=== PATIENT | female | born 1940 | race Caucasian/White ===

== ENCOUNTER 2017-02-22 11:11 | Observation (INO) | payer BC ==
--- NOTE | ~2017-02-22 | HP ---
History And Physical [place] [id number] [facility] [place]. [address] NAME: ELIJAH VERGARA : 44 STATUS : ADM Flora PAT#: [id number] AGE: 77 ADM/REG DATE : 02/22/17 MR#: [id number] REPORT SERV DATE: 02/22/17 DICTATED BY: SHERWIN LOU DATE: 02/22/17 REPORT STATUS : Draft TRANSCRIBED BY: JERAMY DATE: 02/22/17 DATE OF ADMISSION: 02/22/2017 CHIEF COMPLAINT: Syncope. 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 She was scheduled to see a retina specialist, was sitting in the lobby, was sitting and went to get up and felt a little dizzy, told her to cancel her appointment. She then david to stand and took a couple of steps and she had a syncopal episode. She states she felt dizzy and lightheaded just prior and she was diaphoretic. She did not have any nausea or vomiting. She states yesterday she worked outside all day. She may not have drunk enough fluids. She has not had any chest pain recently. She has not had any shortness of breath. She denies any nausea, vomiting, or diarrhea prior too. She has not had any fevers at home. She has actually been doing quite well. She typically mows the grass quite regularly which she had done yesterday but she also spent some time working in the yard in excess of what she normally does. PAST MEDICAL HISTORY: 1. Diabetes mellitus. 2. Hypertension. 3. Hyperlipidemia. 4. Morbid obesity. 5. CAD with history of CABG and inferior wall AL as well which was treated with a patch. 6. Recently diagnosed ANIKET, awaiting sleep study. ALLERGIES: NO KNOWN DRUG ALLERGIES. SOCIAL HISTORY: She is . She does not use tobacco or alcohol. FAMILY HISTORY: Mom had CHF. HOME MEDICATIONS: Reviewed and attached. REVIEW OF SYSTEMS: Full 10-point review of systems obtained. Pertinent positives are mentioned in the HPI. PHYSICAL EXAMINATION: VITAL SIGNS: Current vital signs, blood pressure 138/62, then 105/84, respiratory rate 19, pulse is 55 to 65, sats are 98%, and temperature is 97.5. GENERAL: Well-developed white female. HEENT: Normocephalic, atraumatic. Throat is clear. NECK: Supple. HEART: Regular rate and rhythm. LUNGS: Grossly clear ABDOMEN: Soft. EXTREMITIES: Warm and dry. Skin is intact. Pulses are 2+ at the feet. NEUROLOGIC: Cranial nerves II through XII are intact. Speech is intact. She has History And Physical [address] [address] NAME: ELIJAH VERGARA : 44 STATUS : ADM Flora PAT#: [id number] AGE: 77 ADM/REG DATE : 02/22/17 MR#: [id number] REPORT SERV DATE: 02/22/17 DICTATED BY: SHERWIN LOU DATE: 02/22/17 REPORT STATUS : Draft TRANSCRIBED BY: JERAMY DATE: 02/22/17 symmetrical strength and tone in all four extremities. LAB AND X-RAY: EKG shows sinus zachary with some old flipped T-waves in her lateral leads that were present on a previous EKG. She also has some Q-waves in her inferior leads. CBC: H and H are 12 and 37, white count 5.5, and platelets are 196. Coags are normal. Chemistry panel: Sodium 140, potassium 4.9, chloride 104, CO2 of 28, BUN and creatinine 38 and 1.64. Glucose is 152. Troponin is 0.02. Mag is 2.4. TSH is 3.2. ASSESSMENT/PLAN: 1. Syncope, likely multifactorial. The patient reports having her Diovan doubled last week. In addition she worked outside all day yesterday, probably did not drink adequate fluids and she has evidence of a mild acute kidney injury. I would recommend placing her in the hospital, hydrating her overnight, checking orthostatics again in the morning. She did not have obvious evidence of orthostasis in the ER. I am going to hold her Diovan, Norvasc, and Coreg for now given that her heart rate is only in the high 50s and she has not had her Coreg yet. We will see how her blood pressure does over the next 24 hours; if she gets above 150, we will go and give her Norvasc. We will check two more sets of cardiac enzymes. Maintain on tele bed and check an echo and go from there. 2. Mild acute kidney injury, likely secondary to having her Diovan dose doubled as well as probably some intravascular volume depletion. We will hydrate overnight hold her Diovan and check some urine studies and go from there. 3. History of coronary artery disease with coronary artery bypass graft. No chest pain. First enzymes are negative. We will do two more sets for completeness. 4. History of obstructive sleep apnea. Plans for full sleep study as an outpatient. 5. Diabetes mellitus. We will add level 1 sliding scale and see how her A1c looks. 6. Deep venous thrombosis prophylaxis. Subcutaneous Lovenox. 7. History of hypertension. Holding medications given syncope. 8. Disposition pending above. KLJ/MODL Sherwin Lou M.D. / [id number] CC: Jeancarlos John Jr, MD John Carter Hemphill, MD
--- NOTE | ~2017-02-22 | DS ---
Discharge Summary [facility] [address] [place]. [address] NAME: ELIJAH VERGARA : 44 STATUS : DIS Flora PAT#: [id number] AGE: 77 ADM/REG DATE : 02/22/17 MR#: [id number] REPORT SERV DATE: 02/24/17 DICTATED BY: MAXIMILIAN TENORIO DATE: 02/23/17 REPORT STATUS : Draft TRANSCRIBED BY: MODL DATE: 02/23/17 ADMISSION DATE: 02/22/2017 DISCHARGE DATE: 02/23/2017 DISCHARGE DIAGNOSES: 1. Syncope. 2. Acute kidney injury, resolving, most recent creatinine 1.25. 3. Sinus bradycardia. 4. Diabetes type 2. 5. History of hypertension. 6. Hypothyroidism, most recent TSH 3.210, on current Synthroid therapy. DISCHARGE MEDICATIONS: As follows; amlodipine 5 mg daily, aspirin 81 mg daily, Synthroid 25 mcg daily, Diovan 160 mg daily, Crestor 20 mg at bedtime, Coreg 25 mg daily, vitamin B12 one tablet p.o. twice a day, vitamin D one tablet daily, Centrum, multivitamin tab daily, magnesium one tab daily. HISTORY OF PRESENT ILLNESS: This is a very pleasant 77-year-old white female, who presented with a syncopal episode. Please see the initial H and P of Dr. Radhika Hernandez. This patient is admitted to the Hospitalist Service for further evaluation and treatment. The patient was admitted for observation of this syncopal episode. She was found to be in some mild acute kidney injury with a creatinine of 1.64. She was given IV hydration. Lab work was followed including troponins, TSH, metabolic panels, and H and H. Her orthostatics were also checked, which were within normal limits. The patient did well and has not had any more episodes of syncope or dizziness. Her creatinine trended downward with hydration. She had an echocardiogram done that showed an ejection fraction of 40% with some mild mitral and tricuspid regurg, which was only a minor advancement from a prior echocardiogram from 2013 as this showed an ejection fraction of 40% to 45%. The patient was felt safe for discharge and instructed to follow up with her primary care, Dr. Quiroga in approximately two weeks to further discuss her blood pressure and have decreased her Diovan back to the 160 daily. The patient also apparently has an outpatient sleep study that I have instructed her to keep and to also keep all her regular followups with her milking worker, Dr. Sawyer. The patient is in agreement with this plan going forward. I have updated her and her family at bedside. BETINA/RUPERTL Maximilian Tenorio NP / [id number] CC: Caren Etienne
[2017-02-22 10:46] LABS: BASOPHILS 0.2 %; BASOPHILS ABSOLUTE 0.01 10/3/uL (0.0-0.16); EOSINOPHILS 1.1 %; EOSINOPHILS ABSOLUTE 0.06 10/3/uL (0.0-0.53); HEMOGLOBIN 12.4 g/dL (12.0-16.0); IMMATURE GRANULOCYTES 0.2 %; IMMATURE GRANULOCYTES ABSOLUTE 0.01 10/3/uL (0.0-0.11); LYMPHOCYTES 26.9 %; LYMPHOCYTES ABSOLUTE 1.48 10/3/uL (0.67-4.30); MEAN PLATELET VOLUME 11.5 fL (9.2-13.0); MONOCYTES 6.9 %; MONOCYTES ABSOLUTE 0.38 10/3/uL (0.21-1.20); NEUTROPHILS 64.7 %; NEUTROPHILS ABSOLUTE 3.57 10/3/uL (2.02-8.40); RBC DISTRIBUTION WIDTH 13.8 % (12.0-16.0); RED CELL COUNT 4.13 10/6/uL (4.0-5.6); WHITE BLOOD CELLS 5.5 10/3/uL (4.5-10.5)
[2017-02-22 10:47] LABS: ER CBC TAT 0 Hrs 03 Mins; HEMATOCRIT 37.1 % (36.0-48.0); MANUAL DIFF NO %; MEAN CORPUS HGB CONC 33.4 g/dL (32.0-36.0); MEAN CORPUSCULAR VOLUME 89.8 fL (80-100); PLATELET COUNT 196 10/3/uL (150-400)
[2017-02-22 10:55] LABS: PROTIME (NOT ORD) 13.5 SEC (12.0-14.5)
[2017-02-22 11:08] LABS: BUN (BLOOD UREA NITROGEN) 38 MG/DL (6-23); CALCIUM, SERUM 8.9 MG/DL (8.5-10.4); CHEST PAIN PROFILE TAT 0 Hrs 25 Mins; CHLORIDE, SERUM 104 MMOL/L (96-112); CO2 (CARBON DIOXIDE) 28 MMOL/L (24-34); CREATININE 1.64 MG/DL (0.55-1.02); GFR AFRICAN AMERICAN 35 ML/MIN (>=60); GFR NON AFRICAN AMERICAN 30 ML/MIN (>=60); GLUCOSE, SERUM 152 MG/DL (60-99); POTASSIUM, SERUM 4.9 MMOL/L (3.5-5.3); SODIUM, SERUM 140 MMOL/L (135-148); TROPONIN I <0.02 NG/ML (<0.05)
[~2017-02-22 11:11] MED LIST: ACTOPLUS M15 MG/500 PO; ASAB PO; COREG12 PO; DIOV160 PO; EXFORGE; L20 PO; LEVOTHROID25 MCG PO; LIPITOR20 PO; MAGOX4 PO; MULTI-VIT HP OR; NITROII20C TOP; NORV5 PO; PROTONIX PO; VITAMIN D31000 UNIT PO
[2017-02-22] MEDS ORDERED: DIOV160 PO (12:25)
[2017-02-22] MEDS ORDERED: NORV5 PO (12:25)
[2017-02-22] MEDS ORDERED: CRESTOR20 MG PO (12:25)
[2017-02-22] MEDS ORDERED: COREG25 PO (12:26)
[2017-02-22] MEDS ORDERED: VITAMIN B-12 PO (12:26)
[2017-02-22] MEDS ORDERED: LEVOTHROID25 MCG PO (12:26)
[2017-02-22] MEDS ORDERED: CENTRUM PO (12:27)
[2017-02-22] MEDS ORDERED: MAGNESIUM PO (12:27)
[2017-02-22] MEDS ORDERED: VITAMIN D PO (12:27)
[2017-02-22] MEDS ORDERED: ASAB PO (12:27)
[2017-02-22 14:12] LABS: PHOSPHORUS, SERUM 4.3 MG/DL (2.5-4.5)
[2017-02-22 17:41] LABS: ASCORBIC ACID (UR NOT ORDER) NEG (NEG); BILIRUBIN, URINE NEGATIVE (NEG); KETONE, URINE NEGATIVE (NEG); LEUKOCYTE ESTERASE(NOT OR MOD (NEG); WBC (NOT ORDERED) (RFLEX) 3 (0-5)
[2017-02-23 04:18] LABS: BASOPHILS 0.2 %; BASOPHILS ABSOLUTE 0.01 10/3/uL (0.0-0.16); EOSINOPHILS 1.8 %; EOSINOPHILS ABSOLUTE 0.11 10/3/uL (0.0-0.53); HEMATOCRIT 33.6 % (36.0-48.0); IMMATURE GRANULOCYTES 0.2 %; IMMATURE GRANULOCYTES ABSOLUTE 0.01 10/3/uL (0.0-0.11); LYMPHOCYTES ABSOLUTE 2.18 10/3/uL (0.67-4.30); MEAN CORPUS HGB CONC 32.7 g/dL (32.0-36.0); MEAN CORPUSCULAR HEMOGLOB 29.3 pg (26.0-34.0); MEAN CORPUSCULAR VOLUME 89.6 fL (80-100); MEAN PLATELET VOLUME 12.1 fL (9.2-13.0); MONOCYTES 8.2 %; MONOCYTES ABSOLUTE 0.51 10/3/uL (0.21-1.20); NEUTROPHILS 54.6 %; NEUTROPHILS ABSOLUTE 3.41 10/3/uL (2.02-8.40); PLATELET COUNT 216 10/3/uL (150-400); RBC DISTRIBUTION WIDTH 13.8 % (12.0-16.0); RED CELL COUNT 3.75 10/6/uL (4.0-5.6); WHITE BLOOD CELLS 6.2 10/3/uL (4.5-10.5)
[2017-02-23 04:20] LABS: MANUAL DIFF NO %
[2017-02-23 04:38] LABS: CALCIUM, SERUM 8.4 MG/DL (8.5-10.4); CHLORIDE, SERUM 111 MMOL/L (96-112); CO2 (CARBON DIOXIDE) 25 MMOL/L (24-34); CREATININE 1.25 MG/DL (0.55-1.02); GFR AFRICAN AMERICAN 49 ML/MIN (>=60); GFR NON AFRICAN AMERICAN 42 ML/MIN (>=60); SODIUM, SERUM 143 MMOL/L (135-148); TROPONIN I <0.02 NG/ML (<0.05)
[2017-02-23 04:57] LABS: BUN (BLOOD UREA NITROGEN) 32 MG/DL (6-23); GLUCOSE, SERUM 93 MG/DL (60-99)
== END 2017-02-23 14:38 | disposition home or self-care (01) ==
LOC: ER 11:11 → CDU1 12:16
PROVIDERS: Emergency Medicine; Internal Medicine
DX: R55 Syncope and collapse (principal); N17.9 Acute kidney failure, unspecified; E11.9 Type 2 diabetes mellitus without complications; I10 Essential (primary) hypertension; E78.5 Hyperlipidemia, unspecified; D64.9 Anemia, unspecified; E66.01 Morbid (severe) obesity due to excess calories; K21.9 Gastro-esophageal reflux disease without esophagitis; E78.00 Pure hypercholesterolemia, unspecified; E03.9 Hypothyroidism, unspecified; I25.10 Atherosclerotic heart disease of native coronary artery without angina pectoris; I25.2 Old myocardial infarction; G47.33 Obstructive sleep apnea (adult) (pediatric); Z95.1 Presence of aortocoronary bypass graft; R00.1 Bradycardia, unspecified; Z79.82 Long term (current) use of aspirin; Z79.899 Other long term (current) drug therapy
CPT/HCPCS: 71020; 80048; 81001; 82962; 83735; 84100; 84443; 84484; 85025; 85610; 85730; 87086; 93005; 96372; 99285; A9270-GY; C8929; G0378; Q9957